=== PATIENT | male | born 1990 | race African-American/Black ===

== ENCOUNTER 2017-12-01 15:58 | Emergency (ER) | payer OTHER ==
[2017-12-01] MEDS: ACETAMINOPHEN 325 MG TAB PO (18:15)
[2017-12-01] MEDS: IBUPROFEN 600 MG TAB PO (18:15)
== END 2017-12-01 18:27 | disposition home or self-care (01) ==
LOC: M ED 15:58
DX: S06.0X0A Concussion without loss of consciousness, initial encounter (principal); Z87.820 Personal history of traumatic brain injury; W19.XXXA Unspecified fall, initial encounter; Y92.139 Unspecified place military base as the place of occurrence of the external cause; Y93.9 Activity, unspecified; Y99.1 Military activity; G93.89 Other specified disorders of brain; D16.4 Benign neoplasm of bones of skull and face; Z79.899 Other long term (current) drug therapy
CPT/HCPCS: 70450